=== PATIENT | male | born 1950 | race Caucasian/White ===

== ENCOUNTER 2022-08-14 15:50 | Emergency (ER) | payer OTHER ==
[~2022-08-14] VITALS: Ht 190.5 cm; Wt 99.8 kg
[2022-08-14] MEDS ORDERED: OXYBUTYNIN CHLOR5 M1 (16:04)
[2022-08-14] MEDS ORDERED: DILTIAZEM ER120 M2 (16:04)
[2022-08-14] MEDS ORDERED: PRILOSEC OTC20 MG (16:05)
[2022-08-14] MEDS ORDERED: NORVASC2.5 MG (16:05)
[2022-08-14] MEDS ORDERED: DICLOFENAC POTA50 MG (16:05)
[2022-08-14] MEDS ORDERED: GLUMETZA500 MG (16:05)
[2022-08-14] MEDS ORDERED: MONTELUKAST SODI4 M1 (16:05)
[2022-08-14] MEDS ORDERED: CITALOPRAM20 MG/10 M (16:06)
[2022-08-14] MEDS ORDERED: SIMVASTATIN5 MG (16:06)
[2022-08-14] MEDS ORDERED: CLARITIN10 M1 (16:06)
[2022-08-14] MEDS ORDERED: HYDROCHLOROTHIA25 MG (16:06)
[2022-08-14] MEDS ORDERED: COZAAR100 MG (16:06)
[2022-08-14] MEDS ORDERED: CHILDREN'S ASPI81 MG (16:06)
[2022-08-14] MEDS ORDERED: LANTUS SOL100 UNIT/1 (16:07)
[2022-08-14] MEDS ORDERED: PROSCAR5 MG (16:07)
== END 2022-08-14 23:39 | disposition home or self-care (01) ==
LOC: ER 15:50
DX: J44.1 Chronic obstructive pulmonary disease with (acute) exacerbation (principal); Z20.822 Contact with and (suspected) exposure to COVID-19